=== PATIENT | male | born 1950 | race Caucasian/White ===

== ENCOUNTER 2017-10-03 13:07 | Emergency (ER) | payer OTHER ==
[~2017-10-03] VITALS: Ht 180.3 cm; Wt 163.6 kg
[2017-10-03 18:29] LABS: HEMATOCRIT 34.4 % (38.0-50.0); MCH 28.5 PG (29.0-34.0); MCHC 33.1 G/DL (30.0-36.0); MEAN PLAT.VOLUME 9.7 uM^3 (9.0-12.4); RBC DIS.WIDTH-CV 14.6 % (11.8-14.6); RBC DIS.WIDTH-SD 46.1 % (39-53); WHITE BLOOD COUNT 10.2 K/uL (4.1-10.2)
[2017-10-03 18:36] LABS: PLATELET COUNT 236 K/uL (156-360)
[2017-10-03 18:52] LABS: CHLORIDE 99 mEq/L (99-109); POTASSIUM 3.2 mEq/L (3.7-5.4); SODIUM 134 mEq/L (136-147)
[2017-10-03 18:54] LABS: GLUCOSE 179 mg/dL (70-99)
[2017-10-03 18:55] LABS: ANION GAP 11 MEQ/L (2-14)
[2017-10-03 18:56] LABS: TOTAL BILIRUBIN 0.4 mg/dL (0.0-1.0)
[2017-10-03 18:57] LABS: ALKALINE PHOSPHATASE 57 IU/L (3-129)
[2017-10-03 18:58] LABS: GFR ESTIMATE (CALCULATED) > 59 mL/min/
[2017-10-03 18:59] LABS: UREA NITROGEN (BUN) 43 mg/dL (9-23)
[2017-10-03] MEDS ORDERED: HYDROCODON-ACE1 EAC7 PO (19:26)
[2017-10-03] MEDS ORDERED: PROPRANOLOL HC120 MG PO (19:26)
[2017-10-03] MEDS ORDERED: JENTADUETO XR1 EACH PO (19:26)
[2017-10-03] MEDS ORDERED: LISINOPRIL40 MG PO (19:26)
[2017-10-03] MEDS ORDERED: SIMVASTATIN20 MG PO (19:27)
[2017-10-03] MEDS ORDERED: HYDROCHLOROTHIA25 MG PO (19:27)
[2017-10-03] MEDS ORDERED: FUROSEMIDE40 MG PO (19:27)
[2017-10-03] MEDS ORDERED: ESTER-C 1,0001 EACH PO (19:27)
[2017-10-03] MEDS ORDERED: SERTRALINE HCL100 MG PO (19:27)
[2017-10-03] MEDS ORDERED: KEFLEX500 MG PO (19:49)
[2017-10-03] MEDS ORDERED: BACTRIM,SEPT1 TABLET PO (19:49)
[2017-10-03 21:53] VITALS: BP 117/51
== END 2017-10-03 21:57 | disposition home or self-care (01) ==
LOC: EME 13:07
PROVIDERS: Physician Assistant
DX: L03.115 Cellulitis of right lower limb (principal); L03.116 Cellulitis of left lower limb; I87.8 Other specified disorders of veins; E87.6 Hypokalemia; I10 Essential (primary) hypertension; E78.5 Hyperlipidemia, unspecified; E11.9 Type 2 diabetes mellitus without complications
CPT/HCPCS: 73590; 80053; 83605; 83880; 85027; 87040; 93970; 99281; 99284; J0696